=== PATIENT | male | born 1995 | race Caucasian/White ===

== ENCOUNTER 2018-07-20 15:35 | Emergency (ER) | payer SELFPAY ==
[2018-07-20 15:44] VITALS: BP 151/98
[2018-07-20] MEDS ORDERED: PROPARACAINE 0.5% 15 ML OPHT DROP OP ONE (16:03)
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
[2018-07-20] MEDS ORDERED: FLUORESCEIN SODIUM 1 MG STRIP OP ONE (16:06)
== END 2018-07-20 17:10 | disposition home or self-care (01) ==
DX: S05.02XA Injury of conjunctiva and corneal abrasion without foreign body, left eye, initial encounter (principal); Y04.8XXA Assault by other bodily force, initial encounter; Y92.9 Unspecified place or not applicable; Y93.9 Activity, unspecified; Y99.9 Unspecified external cause status

== ENCOUNTER 2018-10-15 17:07 | Emergency (ER) | payer OTHER ==
[2018-10-15] MEDS ORDERED: TDAP ADULT 0.5 ML INJ (BOOSTRIX) IM ONE (18:05)
[2018-10-15] MEDS ORDERED: ceFAZolin 2 GM/DEXTROSE 100 ML IV ONE (18:07)
--- NOTE | 2018-10-15 18:23 | EDPHY ---
H & P Stated Complaint: fell off ladder 1 week ago, cut LLE on glass window Time Seen by Provider: 10/15/18 18:01 HPI/ROS: Chief complaint: Left lower extremity infection History of present illness: This is a 23-year-old male who presents to the emergency department concerned he has a left lower extremity infection. Patient reports approximately a week ago he slipped on a ladder and cut his left geronimo on a piece of glass. He cleaned the wound. He has been keeping it clean since then. However over the last day he has developed pain, redness and swelling around the wound. No red streaking. It is not circumferential and does not involve the calf. No fevers. - Personal History Current Tetanus Diphtheria and Acellular Pertussis (TDAP): No - Medical/Surgical History Hx Asthma: No Hx Chronic Respiratory Disease: No Hx Diabetes: No Hx Cardiac Disease: No Hx Renal Disease: No Hx Cirrhosis: No Hx Alcoholism: No Other PMH: Denies - Social History Smoking Status: Never smoked - Physical Exam Exam: General: Alert, nontoxic. Skin: Abrasion to the left anterior mid geronimo. There is surrounding erythema and edema. No induration or fluctuance to suggest abscess. No red streaking. Musculoskeletal: He is moving the left lower extremity all joints well without difficulty. Vascular: DP and PT pulses 2+. Neurologic: Sensation intact in the left leg. Constitutional: Initial Vital Signs Temperature (C) 36.9 C 10/15/18 17:17 Heart Rate 101 H 10/15/18 17:17 Respiratory Rate 18 10/15/18 17:17 Blood Pressure 136/86 H 10/15/18 17:17 O2 Sat (%) 96 10/15/18 17:17 O2 Delivery Mode Room Air Allergies/Adverse Reactions: No Known Allergies Allergy (Unverified 07/20/18 15:44) Home Medications: Medication Instructions Recorded Cephalexin [Keflex] 500 mg PO QID 10 Days cap 10/15/18 Medical Decision Making - Diagnostics Imaging Results: Imaging Impressions Tibia/Fibula X-Ray 10/15/18 18:07 Impression: Unremarkable radiographs. Imaging: I viewed and interpreted images myself ED Course/Re-evaluation: Patient seen under the supervision of my primary supervising physician Dr. Selina Arauz. Patient presents for what he believes is left lower extremity infection from a cut. He does appear to have a localized cellulitis. He is given 2 g of Ancef. His tetanus is updated. X-rays obtained and negative. I feel he is safe for outpatient management. He is discharged home on Keflex. He is asked to follow up with primary care doctor for recheck. Strict return precautions are given. Patient voiced understanding and agreement with plan. Differential Diagnosis: Included but not limited to erysipelas, cellulitis, abscess, doubtful osteomyelitis, doubtful thromboembolic disease - Data Points Medications Given: Discontinued Medications Diphtheria/Tetanus/Acell Pertussis (Boostrix) 0.5 ml IM .ONCE ONE Stop: 10/15/18 18:06 Last Admin: 10/15/18 18:09 Dose: 0.5 ml Cefazolin Sodium/Dextrose (Ancef) 100 mls @ 200 mls/hr IV EDNOW ONE PRN Reason: Protocol Stop: 10/15/18 18:36 Last Admin: 10/15/18 18:21 Dose: 100 mls Departure - Departure Disposition: Home, Routine, Self-Care Condition: Good Instructions: Cellulitis (ED) Additional Instructions: Please follow-up with a primary care doctor this week for further evaluation and care Take all antibiotics as prescribed until finished even feeling better If symptoms worsen or new symptoms develop including the development of fever, increasing pain, redness, swelling or other signs or symptoms please return to the emergency room for recheck Referrals: NONE *PRIMARY CARE P,. [Primary Care Provider] - As per Instructions [facility],. [Clinic] - As per Instructions Raman Sanchez MD [Medical Doctor] - As per Instructions Prescriptions: Cephalexin [Keflex] 500 mg PO QID 10 Days cap
[2018-10-15 19:56] VITALS: BP 141/80
== END 2018-10-15 19:57 | disposition home or self-care (01) ==
DX: L03.116 Cellulitis of left lower limb (principal); Z23 Encounter for immunization
CPT/HCPCS: J0690